=== PATIENT | female | born 1950 | race Caucasian/White ===

== ENCOUNTER 2021-02-27 11:32 | Inpatient (IN) | payer MEDICARE, MEDICAID ==
[~2021-02-27] VITALS: Ht 165.1 cm; Wt 79.8 kg
[~2021-02-27 11:32] MED LIST: ASPI81TA87 PO; ATOR40TA28 PO; BRIM15OS OU; HYDR25TA2 PO; LISI-892 PO; OMEP20 PO; TRAV2.5D7 OU
[2021-02-27] MEDS ORDERED: SUCCINYLCHOLINE CHLORIDE 20 MG/ML 10 ML VIAL ONE (11:46)
[2021-02-27] MEDS ORDERED: RAPID SEQUENCE KIT [RSI] 1 EACH KIT MISC ONE (11:46)
[2021-02-27 12:08] LABS: BASOPHILS % (AUTO) 0.9 % (0.0-2.0); EOSINOPHILS % (AUTO) 1.9 % (1.0-6.0); HEMATOCRIT 40.3 % (36-46); HEMOGLOBIN 13.3 g/dL (12.0-16.0); LYMPHOCYTES # (AUTO) 3.1 K/uL (1.0-4.8); LYMPHOCYTES % (AUTO) 43.4 % (22.0-44.0); MEAN CORPUSCULAR HEMOGLOBIN 31.8 pg (26.0-34.0); MEAN CORPUSCULAR VOLUME 96 fL (80-100); MONOCYTES # (AUTO) 0.7 K/uL (0.1-1.0); MONOCYTES % (AUTO) 9.4 % (2.0-9.0); NEUTROPHILS # (AUTO) 3.2 K/uL (1.8-7.7); NEUTROPHILS % (AUTO) 44.4 % (40.0-70.0); PLATELET COUNT (AUTO) 192 K/uL (150-450); RED BLOOD CELL COUNT(AUTO) 4.19 MIL/uL (4.00-5.20); RED CELL DISTRIBUTION WIDTH 13.7 % (11.5-14.5)
[2021-02-27 12:22] LABS: INR 1.1 (0.9-1.1); PROTHROMBIN TIME 11.4 SEC (9.4-11.6)
[2021-02-27 12:24] LABS: ABG A-A DIFF O2 174.8 mmHg (10-20.0); ABG BASE EXCESS -5.5 mmol/L (-2.0-3.0); ABG CARBOXYHEMOGLOBIN 0.3 % (0.0-1.5); ABG HCO3 20.8 mmol/L (22.0-26.0); ABG METHEMOGLOBIN 0.3 % (0.0-1.5); ABG OXYGEN CONTENT 21.3 mL/dL (15.0-23.0); ABG OXYGEN SATURATION 99.7 % (95.0-98.0); ABG OXYHEMOGLOBIN 99.1 % (94.0-100.0); ABG PCO2 34 mmHg (35-45); ABG PH 7.383 (7.35-7.450); ABG TOTAL HEMOGLOBIN 14.3 G/dL (12.0-18.0); PO2, ARTERIAL BG 504.6 mmHg (75.0-83.0); SOURCE, BLOOD GAS ARTERIAL; TEMPERATURE, FAHRENHEIT, BG 98.6 FAHREN (96.0-98.6)
[2021-02-27 12:25] LABS: O2 DEVICE,BLOOD GAS VENTILATOR (ROOM AIR); PEEP,BG 5 cm H2O; SITE, BLOOD GAS RT RADIAL; SPONTANEOUS VT, BG 480 ml; VT, ABG 380 ml
[2021-02-27 12:25] LABS: ALANINE AMINOTRANSFERASE 60 U/L (12-78); ALBUMIN 3.7 g/dL (3.4-5.0); ALKALINE PHOSPHATASE 303 U/L (46-116); ANION GAP 14 mmol/L (8-16); ASPARTATE AMINOTRANSFERASE 60 U/L (15-37); BILIRUBIN,TOTAL 0.6 mg/dL (0.1-1.0); CALCIUM, TOTAL 8.9 mg/dL (8.8-10.5); CARBON DIOXIDE 24 mmol/L (22-29); CHLORIDE 101 mmol/L (98-107); CREATININE 0.64 mg/dL (0.60-1.30); GLUCOSE,RANDOM 236 mg/dL (70-110); SODIUM SERUM 139 mmol/L (136-145); TOTAL PROTEIN, SERUM 8.1 g/dL (6.4-8.2); UREA NITROGEN, BLOOD 10 mg/dL (7-18)
[2021-02-27 12:26] LABS: GLOMERULAR FILTR. RATE CALC > 60 mL/min (>60); POTASSIUM 2.8 mmol/L (3.5-5.1)
[2021-02-27] MEDS ORDERED: IOHEXOL 350 MG/ML 75 ML VIAL ONE (12:29)
[2021-02-27] MEDS ORDERED: SODIUM CHLORIDE 0.9% 100 ML ONE (12:30)
[2021-02-27] MEDS ORDERED: FentaNYL CIT 1000MCG/0.9% NACL 100 ML IV PRN (12:30)
[2021-02-27] MEDS ORDERED: NiCARDipine HCL 25 MG in DEXTROSE 5%-WATER 240 ML IV PRN (12:30)
[2021-02-27] MEDS ORDERED: BISACODYL 10 MG RECTAL RECTAL SUPPOSITORY PR PRN (13:30)
[2021-02-27] MEDS ORDERED: DEXTROSE 50%-WATER 25 GM/50 ML SYRINGE IVP PRN (13:30)
[2021-02-27] MEDS ORDERED: ONDANSETRON HCL 4 MG/2 ML VIAL IVP PRN (13:30)
[2021-02-27] MEDS: POTASSIUM CHL 10 MEQ/WATER 50 ML IV SCH ×2 (14:14→14:57)
[2021-02-27] MEDS: PANTOPRAZOLE SODIUM 40 MG/VIAL IVP SCH (14:14)
[2021-02-27 14:16] LABS: ABG BASE EXCESS -2.7 mmol/L (-2.0-3.0); ABG CARBOXYHEMOGLOBIN 0.3 % (0.0-1.5); ABG METHEMOGLOBIN 0.2 % (0.0-1.5); ABG OXYGEN CONTENT 20.1 mL/dL (15.0-23.0); ABG OXYGEN SATURATION 99.3 % (95.0-98.0); ABG OXYHEMOGLOBIN 98.8 % (94.0-100.0); ABG PCO2 48 mmHg (35-45); ABG PH 7.307 (7.35-7.450); ABG TOTAL HEMOGLOBIN 13.8 G/dL (12.0-18.0); PO2, ARTERIAL BG 369.8 mmHg (75.0-83.0); SOURCE, BLOOD GAS ARTERIAL; TEMPERATURE, FAHRENHEIT, BG 98.6 FAHREN (96.0-98.6)
[2021-02-27] MEDS: LevETIRAcetam 500 MG in DEXTROSE 5%-WATER 100 ML IV SCH (14:19)
[2021-02-27 14:21] LABS: O2 DEVICE,BLOOD GAS VENTILATOR (ROOM AIR); PEEP,BG 5 cm H2O; SITE, BLOOD GAS RT RADIAL; SPONTANEOUS VT, BG 420 ml; VT, ABG 380 ml
[2021-02-27 18:39] LABS: COVID AG,FIA SOURCE NASOPHARYNGEAL
[2021-02-27 22:20] LABS: APPEARANCE,URINE CLEAR (CLEAR); BILIRUBIN,URINE NEGATIVE (NEGATIVE); GLUCOSE, URINE (UA) 100 mg/dL (NEGATIVE); KETONES,URINE NEGATIVE (NEGATIVE); LEUKOCYTE ESTERASE ,URINE NEGATIVE (NEGATIVE); NITRATE,URINE NEGATIVE (NEGATIVE); OCCULT BLOOD,URINE NEGATIVE (NEGATIVE); PROTEIN,URINE TRACE (NEGATIVE)
[2021-02-27 22:23] LABS: AMPHET/METH SCREEN,URINE NEGATIVE (NEGATIVE); BARBITURATE SCREEN, URINE NEGATIVE (NEGATIVE); BENZODIAZEPINES SCREEN,URINE NEGATIVE (NEGATIVE); CANNABINOID SCREEN,URINE NEGATIVE (NEGATIVE); COCAINE SCREEN,URINE NEGATIVE (NEGATIVE); METHADONE SCREEN, URINE NEGATIVE (NEGATIVE); OPIATE SCREEN,URINE NEGATIVE (NEGATIVE)
[2021-02-27 22:24] LABS: PHENCYCLIDINE SCREEN,URINE NEGATIVE (NEGATIVE)
[2021-02-27 22:35] LABS: BACTERIA,URINE None Seen /HPF (None Seen); RBC,URINE None Seen /HPF (0-2); WBC,URINE None Seen /HPF (0-5)
[2021-02-28] MEDS: LevETIRAcetam 500 MG in DEXTROSE 5%-WATER 100 ML IV SCH ×2 (01:17→13:53)
[2021-02-28] MEDS: NiCARDipine HCL 25 MG in SODIUM CHLORIDE 0.9% 240 ML IV PRN ×2 (05:58→18:26)
[2021-02-28] MEDS: PANTOPRAZOLE SODIUM 40 MG/VIAL IVP SCH (08:56)
[2021-02-28] MEDS: DEXTROSE 5%-0.45% SODIUM CHL 1,000 ML IV SCH (09:35)
[2021-02-28 10:03] LABS: ANION GAP 9 mmol/L (8-16); CALCIUM, TOTAL 8.8 mg/dL (8.8-10.5); CARBON DIOXIDE 28 mmol/L (22-29); CHLORIDE 102 mmol/L (98-107); CREATININE 0.71 mg/dL (0.60-1.30); GLUCOSE,RANDOM 173 mg/dL (70-110); SODIUM SERUM 139 mmol/L (136-145); UREA NITROGEN, BLOOD 17 mg/dL (7-18)
[2021-02-28 10:06] LABS: GLOMERULAR FILTR. RATE CALC > 60 mL/min (>60)
[2021-02-28] MEDS: ACETAMINOPHEN 325 MG TABLET PO PRN (18:50)
[2021-02-28 21:09] LABS: GLUCOSE,POINT OF CARE 182 MG/DL (70-110)
[2021-02-28] MEDS: INSULIN LISPRO 100 UNITS/ML SQ PRN (23:53)
[2021-03-01 00:02] LABS: GLUCOSE,POINT OF CARE 176 MG/DL (70-110)
[2021-03-01 00:16] VITALS: BP 130/62
[2021-03-01] MEDS: LevETIRAcetam 500 MG in DEXTROSE 5%-WATER 100 ML IV SCH ×2 (01:45→13:05)
[2021-03-01 04:38] VITALS: BP 95/54
[2021-03-01] MEDS: INSULIN LISPRO 100 UNITS/ML SQ PRN ×2 (05:43→13:04)
[2021-03-01 05:49] LABS: GLUCOSE,POINT OF CARE 172 MG/DL (70-110)
[2021-03-01 08:00] VITALS: BP 132/69
[2021-03-01] MEDS: DEXTROSE 5%-0.45% SODIUM CHL 1,000 ML IV SCH (08:29)
[2021-03-01] MEDS: PANTOPRAZOLE SODIUM 40 MG/VIAL IVP SCH (08:29)
[2021-03-01] MEDS: NiCARDipine HCL 25 MG in SODIUM CHLORIDE 0.9% 240 ML IV PRN (10:00)
[2021-03-01 12:00] VITALS: BP 145/75
[2021-03-01 13:31] LABS: ABG BASE EXCESS -0.3 mmol/L (-2.0-3.0); ABG CARBOXYHEMOGLOBIN 0.6 % (0.0-1.5); ABG HCO3 24.3 mmol/L (22.0-26.0); ABG METHEMOGLOBIN 0.3 % (0.0-1.5); ABG OXYGEN CONTENT 18.3 mL/dL (15.0-23.0); ABG OXYGEN SATURATION 97.4 % (95.0-98.0); ABG OXYHEMOGLOBIN 96.5 % (94.0-100.0); ABG PCO2 40 mmHg (35-45); ABG PH 7.407 (7.35-7.450); ABG TOTAL HEMOGLOBIN 13.4 G/dL (12.0-18.0); PO2, ARTERIAL BG 92.7 mmHg (75.0-83.0); SOURCE, BLOOD GAS ARTERIAL
[2021-03-01 13:32] LABS: O2 DEVICE,BLOOD GAS VENTILATOR (ROOM AIR); PEEP,BG 5 cm H2O; SITE, BLOOD GAS RT RADIAL; SPONTANEOUS VT, BG 395 ml; VT, ABG 380 ml
[2021-03-01 14:24] LABS: GLUCOSE,POINT OF CARE 153 MG/DL (70-110)
[2021-03-01 16:00] VITALS: BP 134/68
[2021-03-01 20:00] VITALS: BP 137/73
[2021-03-02] VITALS: BP 144/78
[2021-03-02 00:15] LABS: GLUCOSE,POINT OF CARE 133 MG/DL (70-110)
[2021-03-02] MEDS: INSULIN LISPRO 100 UNITS/ML SQ PRN ×4 (00:37→18:14)
[2021-03-02] MEDS: LevETIRAcetam 500 MG in DEXTROSE 5%-WATER 100 ML IV SCH ×2 (01:15→13:05)
[2021-03-02 04:00] VITALS: BP 130/73
[2021-03-02 05:03] LABS: GLUCOSE,POINT OF CARE 147 MG/DL (70-110)
[2021-03-02 08:00] VITALS: BP 146/65
[2021-03-02] MEDS: PANTOPRAZOLE SODIUM 40 MG/VIAL IVP SCH (08:54)
[2021-03-02] MEDS: DEXTROSE 5%-0.45% SODIUM CHL 1,000 ML IV SCH (08:55)
[2021-03-02] MEDS: ACETAMINOPHEN 325 MG TABLET PO PRN ×2 (09:08→21:23)
[2021-03-02 12:00] VITALS: BP 146/82
[2021-03-02] MEDS ORDERED: ETOMIDATE 2 MG/ML 10 ML VIAL IV ONE (12:26)
[2021-03-02 16:00] VITALS: BP 145/83
[2021-03-02 17:35] LABS: GLUCOSE,POINT OF CARE 141 MG/DL (70-110)
[2021-03-02 17:35] LABS: GLUCOSE,POINT OF CARE 148 MG/DL (70-110)
[2021-03-02 18:27] LABS: GLUCOSE,POINT OF CARE 148 MG/DL (70-110)
[2021-03-02 20:00] VITALS: BP 147/85
[2021-03-03] VITALS: BP 134/81
[2021-03-03] MEDS: INSULIN LISPRO 100 UNITS/ML SQ PRN ×3 (00:28→13:10)
[2021-03-03] MEDS: LevETIRAcetam 500 MG in DEXTROSE 5%-WATER 100 ML IV SCH ×2 (01:32→13:17)
[2021-03-03 04:00] VITALS: BP 149/80
[2021-03-03 04:37] LABS: GLUCOSE,POINT OF CARE 157 MG/DL (70-110)
[2021-03-03 06:25] LABS: GLUCOSE,POINT OF CARE 141 MG/DL (70-110)
[2021-03-03] MEDS: NiCARDipine HCL 25 MG in SODIUM CHLORIDE 0.9% 240 ML IV PRN (06:50)
[2021-03-03 08:00] VITALS: BP 160/79
[2021-03-03 08:04] LABS: ANION GAP 9 mmol/L (8-16); CALCIUM, TOTAL 8.7 mg/dL (8.8-10.5); CARBON DIOXIDE 27 mmol/L (22-29); CHLORIDE 108 mmol/L (98-107); CREATININE 0.56 mg/dL (0.60-1.30); GLOMERULAR FILTR. RATE CALC > 60 mL/min (>60); GLUCOSE,RANDOM 155 mg/dL (70-110); POTASSIUM 3.5 mmol/L (3.5-5.1); SODIUM SERUM 144 mmol/L (136-145); UREA NITROGEN, BLOOD 13 mg/dL (7-18)
[2021-03-03 08:06] LABS: BASOPHILS % (AUTO) 0.3 % (0.0-2.0); EOSINOPHILS % (AUTO) 0.3 % (1.0-6.0); HEMATOCRIT 38.4 % (36-46); HEMOGLOBIN 12.8 g/dL (12.0-16.0); LYMPHOCYTES % (AUTO) 9.6 % (22.0-44.0); MEAN CORPUSCULAR HEMOGLOBIN 31.7 pg (26.0-34.0); MEAN CORPUSCULAR HGB CONC 33.3 G/dL (31.0-37.0); MEAN CORPUSCULAR VOLUME 95 fL (80-100); MONOCYTES % (AUTO) 8.9 % (2.0-9.0); NEUTROPHILS # (AUTO) 8.7 K/uL (1.8-7.7); NEUTROPHILS % (AUTO) 80.9 % (40.0-70.0); PLATELET COUNT (AUTO) 218 K/uL (150-450); RED BLOOD CELL COUNT(AUTO) 4.04 MIL/uL (4.00-5.20)
[2021-03-03] MEDS: PANTOPRAZOLE SODIUM 40 MG/VIAL IVP SCH (09:10)
[2021-03-03] MEDS: METOPROLOL TARTRATE 25 MG TABLET PO SCH ×2 (09:10→21:45)
[2021-03-03] MEDS: DEXTROSE 5%-0.45% SODIUM CHL 1,000 ML IV SCH (09:11)
[2021-03-03] MEDS: HydrALAZINE HCL 20 MG/ML VIAL IVP PRN ×2 (09:52→18:12)
[2021-03-03 12:00] VITALS: BP 141/69
[2021-03-03] MEDS: ACETAMINOPHEN 325 MG TABLET PO PRN ×2 (12:14→18:12)
[2021-03-03 16:00] VITALS: BP 144/76
[2021-03-03 18:18] LABS: GLUCOSE,POINT OF CARE 148 MG/DL (70-110)
[2021-03-03 20:00] VITALS: BP 130/63
[2021-03-03 20:38] LABS: GLUCOSE,POINT OF CARE 138 MG/DL (70-110)
[2021-03-04] VITALS: BP 136/73
[2021-03-04] MEDS: INSULIN LISPRO 100 UNITS/ML SQ PRN ×4 (00:07→17:43)
[2021-03-04] MEDS: LevETIRAcetam 500 MG in DEXTROSE 5%-WATER 100 ML IV SCH ×2 (02:13→14:24)
[2021-03-04] MEDS: HydrALAZINE HCL 20 MG/ML VIAL IVP PRN ×3 (02:21→22:13)
[2021-03-04 04:00] VITALS: BP 148/74
[2021-03-04 05:26] LABS: GLUCOSE,POINT OF CARE 163 MG/DL (70-110)
[2021-03-04 08:00] VITALS: BP 149/79
[2021-03-04 08:21] LABS: BASOPHILS % (AUTO) 0.2 % (0.0-2.0); EOSINOPHILS % (AUTO) 0.1 % (1.0-6.0); HEMATOCRIT 38.4 % (36-46); HEMOGLOBIN 12.9 g/dL (12.0-16.0); LYMPHOCYTES # (AUTO) 0.9 K/uL (1.0-4.8); LYMPHOCYTES % (AUTO) 8.5 % (22.0-44.0); MEAN CORPUSCULAR HEMOGLOBIN 31.8 pg (26.0-34.0); MEAN CORPUSCULAR HGB CONC 33.6 G/dL (31.0-37.0); MEAN CORPUSCULAR VOLUME 95 fL (80-100); MONOCYTES % (AUTO) 8.9 % (2.0-9.0); NEUTROPHILS # (AUTO) 8.9 K/uL (1.8-7.7); NEUTROPHILS % (AUTO) 82.3 % (40.0-70.0); PLATELET COUNT (AUTO) 231 K/uL (150-450); RED BLOOD CELL COUNT(AUTO) 4.06 MIL/uL (4.00-5.20); RED CELL DISTRIBUTION WIDTH 13.9 % (11.5-14.5)
[2021-03-04 08:29] LABS: ANION GAP 9 mmol/L (8-16); CALCIUM, TOTAL 8.8 mg/dL (8.8-10.5); CARBON DIOXIDE 25 mmol/L (22-29); CHLORIDE 105 mmol/L (98-107); GLOMERULAR FILTR. RATE CALC > 60 mL/min (>60); GLUCOSE,RANDOM 186 mg/dL (70-110); POTASSIUM 3.4 mmol/L (3.5-5.1); SODIUM SERUM 139 mmol/L (136-145); UREA NITROGEN, BLOOD 13 mg/dL (7-18)
[2021-03-04] MEDS: METOPROLOL TARTRATE 25 MG TABLET PO SCH ×2 (09:18→20:52)
[2021-03-04] MEDS: PANTOPRAZOLE SODIUM 40 MG/VIAL IVP SCH (09:18)
[2021-03-04] MEDS: DEXTROSE 5%-0.45% SODIUM CHL 1,000 ML IV SCH (09:19)
[2021-03-04] MEDS ORDERED: POTASSIUM CHL 10 MEQ/WATER 50 ML IV PRN (10:00)
[2021-03-04] MEDS ORDERED: POTASSIUM CHLORIDE 20 MEQ ER TABLET PO PRN (10:00)
[2021-03-04 11:03] LABS: GLUCOSE,POINT OF CARE 172 MG/DL (70-110)
[2021-03-04 12:00] VITALS: BP 168/78
[2021-03-04 16:00] VITALS: BP 167/80
[2021-03-04] MEDS: ACETAMINOPHEN 325 MG TABLET PO PRN ×2 (16:27→20:01)
[2021-03-04 19:06] LABS: GLUCOSE,POINT OF CARE 170 MG/DL (70-110)
[2021-03-04 19:13] LABS: GLUCOSE,POINT OF CARE 193 MG/DL (70-110)
[2021-03-04 20:00] VITALS: BP 138/76
[2021-03-05] VITALS: BP 145/70
[2021-03-05] MEDS: INSULIN LISPRO 100 UNITS/ML SQ PRN ×3 (00:09→17:49)
[2021-03-05 01:48] LABS: GLUCOSE,POINT OF CARE 164 MG/DL (70-110)
[2021-03-05] MEDS: LevETIRAcetam 500 MG in DEXTROSE 5%-WATER 100 ML IV SCH ×2 (01:56→14:58)
[2021-03-05 04:00] VITALS: BP 164/84
[2021-03-05 06:59] LABS: GLUCOSE,POINT OF CARE 183 MG/DL (70-110)
[2021-03-05] MEDS: DEXTROSE 5%-0.45% SODIUM CHL 1,000 ML IV SCH (07:59)
[2021-03-05] MEDS: PANTOPRAZOLE SODIUM 40 MG/VIAL IVP SCH (07:59)
[2021-03-05 08:00] VITALS: BP 151/86
[2021-03-05] MEDS: METOPROLOL TARTRATE 25 MG TABLET PO SCH ×2 (08:00→20:42)
[2021-03-05] MEDS: HydrALAZINE HCL 20 MG/ML VIAL IVP PRN ×2 (10:36→22:52)
[2021-03-05 12:00] VITALS: BP 125/70
[2021-03-05] MEDS: ACETAMINOPHEN 325 MG TABLET PO PRN (15:53)
[2021-03-05 16:00] VITALS: BP 147/78
[2021-03-05 17:33] LABS: GLUCOSE,POINT OF CARE 181 MG/DL (70-110)
[2021-03-05 18:00] LABS: GLUCOSE,POINT OF CARE 150 MG/DL (70-110)
[2021-03-05 20:00] VITALS: BP 141/91
[2021-03-06] VITALS: BP 147/79
[2021-03-06] MEDS: INSULIN LISPRO 100 UNITS/ML SQ PRN ×3 (00:12→23:59)
[2021-03-06] MEDS: LevETIRAcetam 500 MG in DEXTROSE 5%-WATER 100 ML IV SCH ×2 (02:26→15:30)
[2021-03-06 04:00] VITALS: BP 142/78
[2021-03-06 06:28] LABS: GLUCOSE,POINT OF CARE 183 MG/DL (70-110)
[2021-03-06 08:00] VITALS: BP 114/69
[2021-03-06] MEDS: PANTOPRAZOLE SODIUM 40 MG/VIAL IVP SCH (08:06)
[2021-03-06] MEDS: METOPROLOL TARTRATE 25 MG TABLET PO SCH ×2 (08:07→21:29)
[2021-03-06] MEDS: DEXTROSE 5%-0.45% SODIUM CHL 1,000 ML IV SCH (08:08)
[2021-03-06 12:00] VITALS: BP 114/69
[2021-03-06] MEDS: ACETYLCYSTEINE 10% 100 MG/ML 4 ML NEB SOLUTION NEB SCH ×3 (15:18→22:36)
[2021-03-06 16:00] VITALS: BP 106/58
[2021-03-06] MEDS: ALBUTEROL SULFATE 2.5 MG/0.5 ML NEB SOLUTION NEB SCH ×3 (16:01→22:36)
[2021-03-06] MEDS: IPRATROPIUM BROMIDE 0.5 MG/2.5 ML NEB SOLUTION NEB SCH ×3 (16:01→22:36)
[2021-03-06 18:38] LABS: GLUCOSE,POINT OF CARE 177 MG/DL (70-110)
[2021-03-06 18:39] LABS: GLUCOSE,POINT OF CARE 206 MG/DL (70-110)
[2021-03-06 20:00] VITALS: BP 125/69
[2021-03-06] MEDS: ACETAMINOPHEN 325 MG TABLET PO PRN (21:33)
[2021-03-07] VITALS: BP 107/77
[2021-03-07 00:29] LABS: GLUCOSE,POINT OF CARE 166 MG/DL (70-110)
[2021-03-07] MEDS: ACETYLCYSTEINE 10% 100 MG/ML 4 ML NEB SOLUTION NEB SCH ×3 (01:45→10:48)
[2021-03-07] MEDS: ALBUTEROL SULFATE 2.5 MG/0.5 ML NEB SOLUTION NEB SCH ×3 (01:45→10:48)
[2021-03-07] MEDS: IPRATROPIUM BROMIDE 0.5 MG/2.5 ML NEB SOLUTION NEB SCH ×3 (01:45→10:48)
[2021-03-07] MEDS: LevETIRAcetam 500 MG in DEXTROSE 5%-WATER 100 ML IV SCH ×2 (02:53→13:50)
[2021-03-07 03:05] LABS: GLUCOSE,POINT OF CARE 228 MG/DL (70-110)
[2021-03-07 04:00] VITALS: BP 115/82
[2021-03-07 07:55] LABS: BASOPHILS % (AUTO) 0.2 % (0.0-2.0); EOSINOPHILS % (AUTO) 0.2 % (1.0-6.0); HEMATOCRIT 41.8 % (36-46); LYMPHOCYTES # (AUTO) 0.9 K/uL (1.0-4.8); LYMPHOCYTES % (AUTO) 5.9 % (22.0-44.0); MEAN CORPUSCULAR HEMOGLOBIN 31.5 pg (26.0-34.0); MEAN CORPUSCULAR HGB CONC 33.5 G/dL (31.0-37.0); MEAN CORPUSCULAR VOLUME 94 fL (80-100); MONOCYTES # (AUTO) 0.8 K/uL (0.1-1.0); MONOCYTES % (AUTO) 5.4 % (2.0-9.0); NEUTROPHILS # (AUTO) 13.1 K/uL (1.8-7.7); PLATELET COUNT (AUTO) 260 K/uL (150-450); RED BLOOD CELL COUNT(AUTO) 4.45 MIL/uL (4.00-5.20); RED CELL DISTRIBUTION WIDTH 13.7 % (11.5-14.5)
[2021-03-07 07:56] LABS: NEUTROPHILS % (AUTO) 88.3 % (40.0-70.0)
[2021-03-07 08:00] VITALS: BP 126/95
[2021-03-07 08:02] LABS: CALCIUM, TOTAL 9.6 mg/dL (8.8-10.5); CREATININE 0.94 mg/dL (0.60-1.30); POTASSIUM 5.2 mmol/L (3.5-5.1)
[2021-03-07] MEDS: METOPROLOL TARTRATE 25 MG TABLET PO SCH (09:37)
[2021-03-07] MEDS: PANTOPRAZOLE SODIUM 40 MG/VIAL IVP SCH (09:37)
[2021-03-07] MEDS: DEXTROSE 5%-0.45% SODIUM CHL 1,000 ML IV SCH (09:38)
[2021-03-07] MEDS: ACETAMINOPHEN 325 MG TABLET PO PRN ×2 (09:48→13:54)
[2021-03-07 12:00] VITALS: BP 126/75
[2021-03-07] MEDS ORDERED: LORazepam 2 MG/ML VIAL IVP ONE (13:45)
[2021-03-07] MEDS: INSULIN LISPRO 100 UNITS/ML SQ PRN (13:52)
[2021-03-07] MEDS ORDERED: EPINEPHrine 1:10,000 [1 MG/10 ML] SYRINGE ONE (15:47)
[2021-03-07 16:05] LABS: CALCIUM, TOTAL 9.1 mg/dL (8.8-10.5); CREATININE 1.72 mg/dL (0.60-1.30); POTASSIUM 5.8 mmol/L (3.5-5.1)
[2021-03-07 16:18] LABS: ALBUMIN 1.5 g/dL (3.4-5.0); BILIRUBIN,TOTAL 0.9 mg/dL (0.1-1.0); MAGNESIUM 2.7 mg/dL (1.80-2.40); PHOSPHORUS 7.3 mg/dL (2.5-4.9); TOTAL PROTEIN, SERUM 5.4 g/dL (6.4-8.2)
[2021-03-11 05:32] LABS: GLUCOSE,POINT OF CARE 207 MG/DL (70-110)
== END 2021-03-07 15:57 | DRG 64 ==
LOC: EMS 11:41 → ICU 13:20 → UNDOADMIN 02-28 11:22 → ICU 02-28 11:22 → UNDODISIN 03-07 15:57
PROVIDERS: ADMIT Internal Medicine; ATTEND Internal Medicine
PROC: 5A1955Z Respiratory Ventilation, Greater than 96 Consecutive Hours (ICD-10-PCS; principal; 2021-02-27)
PROC: 0BH17EZ Insertion of Endotracheal Airway into Trachea, Via Natural or Artificial Opening (ICD-10-PCS; 2021-02-27)
PROC: 5A12012 Performance of Cardiac Output, Single, Manual (ICD-10-PCS; 2021-03-07)
DX: I61.4 Nontraumatic intracerebral hemorrhage in cerebellum (principal); J96.00 Acute respiratory failure, unspecified whether with hypoxia or hypercapnia; G91.9 Hydrocephalus, unspecified; G96.00 Cerebrospinal fluid leak, unspecified; Z99.11 Dependence on respirator [ventilator] status; I61.5 Nontraumatic intracerebral hemorrhage, intraventricular; I10 Essential (primary) hypertension; E66.01 Morbid (severe) obesity due to excess calories; E11.9 Type 2 diabetes mellitus without complications; E87.6 Hypokalemia; I49.01 Ventricular fibrillation; R40.2430 Glasgow coma scale score 3-8, unspecified time; I46.9 Cardiac arrest, cause unspecified; Z83.3 Family history of diabetes mellitus; Z86.73 Personal history of transient ischemic attack (TIA), and cerebral infarction without residual deficits; Z68.29 Body mass index [BMI] 29.0-29.9, adult; Z79.899 Other long term (current) drug therapy; Z79.82 Long term (current) use of aspirin; Z20.822 Contact with and (suspected) exposure to COVID-19
CPT/HCPCS: 36600; 70450; 70496; 70498; 71045; 80048; 80053; 81001; 82805; 82962; 83735; 84100; 84132; 84484; 85025; 85610; 85730; 86850; 86900; 86901; 87070; 87081; 87205; 92950; 93005; 93306; 94002; 94003; 94640; 99291; 99292; C9113; G0378; J0171; J0330; J0360; J0712; J2060; J2405; J3480; J3490; J7050; J7060; Q9967; 36415-L1; 36415-TC; J7613